=== PATIENT | female | born 1980 | race Two or more races ===

== ENCOUNTER 2019-12-01 01:20 | Emergency (ER) | payer SELFPAY ==
[~2019-12-01] VITALS: Ht 165.1 cm; Wt 87.1 kg
[2019-12-01 01:34] VITALS: BP 118/76
--- NOTE | 2019-12-01 02:18 | NUR ---
Patient discharged to home in stable condition. Written and verbal after care instructions given. Patient verbalizes understanding of instruction.
== END 2019-12-01 02:20 | disposition home or self-care (01) ==
LOC: ER 01:22
DX: R05 Cough (principal); R09.81 Nasal congestion; Z20.828 Contact with and (suspected) exposure to other viral communicable diseases